=== PATIENT | female | born 1985 | race Two or more races ===

== ENCOUNTER 2020-01-19 13:05 | Inpatient (IN) | payer BC, OTHER ==
[~2020-01-19] VITALS: Ht 175.3 cm; Wt 77.1 kg
[2020-01-19] MEDS ORDERED: ONDANSETRON ODT 4 MG TAB PO ONE (13:30)
[2020-01-19 15:18] LABS: Basophils # (auto) 0 10 ^3/uL (0-0.2); Basophils % (auto) 0.2 % (0.0-2.0); Eosinophils # (auto) 0 10 ^3/uL (0-0.8); Eosinophils % (auto) 0.1 % (0.0-7.0); Hematocrit 44.7 % (36.0-46.0); Hemoglobin 15.3 g/dL (12.2-16.2); Lymphocytes # (auto) 1.3 10 ^3/uL (0.4-5.4); Lymphocytes % (auto) 19.2 % (10.0-50.0); Mean Corpuscular Hemoglobin 29.1 pg (28.0-32.0); Mean Corpuscular Hgb Conc. 34.3 g/dL (32.0-36.0); Monocytes # (auto) 0.5 10 ^3/uL (0-1.3); Monocytes % (auto) 7.7 % (0.0-12.0); Neutrophils # (auto) 4.9 10 ^3/uL (1.6-8.6); Neutrophils % (auto) 72.8 % (37.0-80.0); Nucleated Red Blood Cells % 0.2 %; Platelet Count (auto) 105 10^3/uL (140-450); Red Blood Cells 5.26 10^6/uL (4.0-5.20); Red Cell Distribution Width 12.9 % (11.8-14.3); White Blood Cell 6.7 10^3/uL (4.4-10.8)
[2020-01-19 15:30] LABS: Albumin 4.6 g/dL (3.4-5.0); Calcium 9.4 mg/dL (8.5-10.1); Magnesium 2.4 mg/dL (1.6-2.6); Potassium 3.5 mmol/L (3.5-5.1)
[2020-01-19 15:32] LABS: Bilirubin, Total 0.9 mg/dL (0.2-1.0); Total Protein 9.6 g/dL (6.4-8.2)
[2020-01-19] MEDS ORDERED: ONDANSETRON HCL 4 MG/2 ML VIAL IV ONE (16:00)
[2020-01-19] MEDS ORDERED: AZITHROMYCIN 500MG/ 250ML 250 ML IV ONE (16:00)
[2020-01-19] MEDS ORDERED: SODIUM CHLORIDE 0.9% 1,000 ML IVB ONE (16:00)
[2020-01-19] MEDS ORDERED: NITROGLYCERIN 0.4 MG SL TAB SL PRN ×2 (18:45→19:30)
[2020-01-19] MEDS ORDERED: MORPHINE SULF INJ 2 MG/ML SYRINGE 1ML IV PRN ×3 (18:45→19:30)
[2020-01-19 19:19] LABS: CRP High Sensitivity 4.15 mg/dL (< 0.3)
[2020-01-19] MEDS ORDERED: LORazepam 0.5 MG TAB PO PRN (19:30)
[2020-01-19] MEDS ORDERED: ACETAMINOPHEN 325 MG TAB PO PRN (19:30)
[2020-01-19] MEDS ORDERED: HYDROcodone-ACET 5/325MG TAB PO PRN (19:30)
[2020-01-19] MEDS ORDERED: ACETAMINOPHEN 500 MG TAB PO PRN (19:30)
[2020-01-19] MEDS ORDERED: ALUM & MAG HYDROX-SIMETH LIQ(MAALOX) 30 ML PO PRN (19:30)
[2020-01-19] MEDS ORDERED: LACTATED RINGER'S 1,000 ML IV ONE (19:30)
[2020-01-19] MEDS ORDERED: PANTOPRAZOLE 40 MG/10 ML VIAL INJ IV ONE (19:30)
[2020-01-19] MEDS ORDERED: SUCRALFATE 1 GM TAB PO ONE (19:30)
[2020-01-19] MEDS ORDERED: DOCUSATE SOD 100 MG CAP PO PRN (19:30)
[2020-01-19] MEDS ORDERED: ONDANSETRON HCL 4 MG/2 ML VIAL IV PRN (19:30)
[2020-01-19] MEDS ORDERED: ZINC SULFATE 220mg CAP or TAB PO ONE (19:45)
[2020-01-19] MEDS ORDERED: ENOXAPARIN SOD 40 MG/0.4 ML SYRINGE SC ONE (19:45)
[2020-01-19] MEDS ORDERED: DexAMETHasone SOD PHOS 10MG/1ML VIAL INJ IV ONE (19:45)
[2020-01-19] MEDS ORDERED: ASCORBIC ACID 1,000 MG TAB PO ONE (19:45)
[2020-01-19] MEDS ORDERED: CHOLECALCIFEROL (VITD3) 2,000 UNIT CAP PO ONE (19:45)
[2020-01-19] MEDS: BUDESONIDE (INHALATION) 180 MCG IH IN SCH (22:00)
[2020-01-19] MEDS: ALBUTEROL SULF HFA 90MCG INH 200DOSE IN SCH (22:00)
--- NOTE | 2020-01-19 22:35 | NUR ---
Respiratory note: RESP MEDS HELD AT THIS TIME WAITING FOR COVID RESULTS. NO DISTRESS NOTED
[2020-01-19] MEDS: SUCRALFATE 1 GM TAB PO SCH (22:40)
[2020-01-19 23:28] VITALS: BP 138/89
[2020-01-20 00:10] LABS: INR 1.12 (0.9-1.15); Partial Thromboplastin Time 28.5 sec (23.0-31.2)
[2020-01-20] MEDS: SODIUM CHLORIDE 0.9% 1,000 ML IV SCH ×2 (02:55→09:56)
[2020-01-20] MEDS: DOXYCYCLINE 100MG/250ML 250 ML IV SCH ×2 (02:55→09:55)
[2020-01-20] MEDS: ALBUTEROL SULF HFA 90MCG INH 200DOSE IN SCH ×2 (06:00→14:00)
[2020-01-20 06:48] LABS: Basophils # (auto) 0 10 ^3/uL (0-0.2); Basophils % (auto) 0.2 % (0.0-2.0); Eosinophils # (auto) 0 10 ^3/uL (0-0.8); Eosinophils % (auto) 0.1 % (0.0-7.0); Hemoglobin 12.9 g/dL (12.2-16.2); Lymphocytes # (auto) 0.3 10 ^3/uL (0.4-5.4); Lymphocytes % (auto) 16.7 % (10.0-50.0); Mean Corpuscular Hemoglobin 28.7 pg (28.0-32.0); Mean Corpuscular Volume 84.6 fL (80.0-100.0); Monocytes # (auto) 0.1 10 ^3/uL (0-1.3); Monocytes % (auto) 5.3 % (0.0-12.0); Neutrophils # (auto) 1.6 10 ^3/uL (1.6-8.6); Neutrophils % (auto) 77.7 % (37.0-80.0); Nucleated Red Blood Cells % 0.3 %; Platelet Count (auto) 85 10^3/uL (140-450); Red Blood Cells 4.49 10^6/uL (4.0-5.20); Red Cell Distribution Width 12.6 % (11.8-14.3)
[2020-01-20] MEDS: SUCRALFATE 1 GM TAB PO SCH ×3 (06:54→17:00)
[2020-01-20 07:10] LABS: Chloride 107 mmol/L (98-107); Potassium 4.3 mmol/L (3.5-5.1); Sodium 139 mmol/L (136-145)
[2020-01-20 07:28] LABS: Alanine Aminotransferase 24 U/L (13-56); Albumin 3.4 g/dL (3.4-5.0); Alkaline Phosphatase 86 U/L (45-117); Anion Gap 6 (5-15); Aspartate Aminotransferase 12 U/L (15-37); BUN/Creatinine Ratio 12.5; Bilirubin, Total 0.7 mg/dL (0.2-1.0); Blood Urea Nitrogen 9 mg/dL (7-18); Calcium 8.6 mg/dL (8.5-10.1); Carbon Dioxide 26 mmol/L (21-32); Cholesterol 107 mg/dL (< 200); GFR African American 120 mL/min; GFR Non-African American 99 mL/min; Glucose 156 mg/dL (74-106); HDL Cholesterol 31 mg/dL (40-59); LDL Cholesterol 63 mg/dL (< 100); Total Protein 7.5 g/dL (6.4-8.2); Triglycerides 52 mg/dL (< 150)
[2020-01-20] MEDS: BUDESONIDE (INHALATION) 180 MCG IH IN SCH (09:56)
[2020-01-20] MEDS ORDERED: ASCORBIC ACID 1,000 MG TAB PO SCH (10:00)
[2020-01-20] MEDS ORDERED: ZINC SULFATE 220mg CAP or TAB PO SCH (10:00)
[2020-01-20] MEDS ORDERED: CHOLECALCIFEROL (VITD3) 2,000 UNIT CAP PO SCH (10:00)
[2020-01-20] MEDS ORDERED: DexAMETHasone SOD PHOS 10MG/1ML VIAL INJ IV SCH (10:00)
[2020-01-20] MEDS ORDERED: ENOXAPARIN SOD 40 MG/0.4 ML SYRINGE SC SCH (10:00)
[2020-01-20] MEDS ORDERED: PANTOPRAZOLE 40 MG/10 ML VIAL INJ IV SCH (10:00)
[2020-01-20] MEDS ORDERED: ACE325T PO (13:29)
[2020-01-20] MEDS ORDERED: ALBUAER3 IN (13:29)
[2020-01-20] MEDS ORDERED: ZINC220T6 PO (13:29)
[2020-01-20] MEDS ORDERED: ASCO10003 PO (13:29)
[2020-01-20] MEDS ORDERED: CHOL1CAP47 PO (13:29)
[2020-01-20] MEDS ORDERED: DOXY-286 PO (13:33)
[2020-01-20 14:19] LABS: Basophils # (auto) 0 10 ^3/uL (0-0.2); Eosinophils # (auto) 0 10 ^3/uL (0-0.8); Hematocrit 39.1 % (36.0-46.0); Hemoglobin 13.3 g/dL (12.2-16.2); Lymphocytes # (auto) 0.3 10 ^3/uL (0.4-5.4); Lymphocytes % (auto) 9.1 % (10.0-50.0); Mean Corpuscular Hemoglobin 28.8 pg (28.0-32.0); Mean Corpuscular Hgb Conc. 33.9 g/dL (32.0-36.0); Mean Corpuscular Volume 84.7 fL (80.0-100.0); Monocytes # (auto) 0.2 10 ^3/uL (0-1.3); Monocytes % (auto) 4.7 % (0.0-12.0); Neutrophils % (auto) 86.2 % (37.0-80.0); Nucleated Red Blood Cells % 0.1 %; Platelet Count (auto) 91 10^3/uL (140-450); Red Blood Cells 4.62 10^6/uL (4.0-5.20); Red Cell Distribution Width 12.7 % (11.8-14.3); White Blood Cell 3.4 10^3/uL (4.4-10.8)
[2020-01-20 18:00] VITALS: BP 140/72
[2020-01-20] MEDS ORDERED: DOXYCYCLINE 100 MG TAB/CAP PO SCH (22:00)
== END 2020-01-20 18:08 | disposition home or self-care (01) | DRG 177 ==
LOC: ER 13:05 → TELE 19:24
PROVIDERS: ADMIT Hospitalist; ATTEND Internal Medicine
DX: U07.1 COVID-19 (principal); J12.89 Other viral pneumonia; D69.6 Thrombocytopenia, unspecified; E28.2 Polycystic ovarian syndrome; E66.9 Obesity, unspecified; K29.00 Acute gastritis without bleeding; Z97.5 Presence of (intrauterine) contraceptive device
CPT/HCPCS: 36415; 71045; 74176; 80053; 80061; 82728; 83036; 83605; 83615; 83735; 84443; 84484; 84702; 85025; 85379; 85610; 85730; 86141; 87040; C9113; G0378; J1100; J2405; J3490